=== PATIENT | male | born 1995 | race Caucasian/White ===

== ENCOUNTER 2022-11-22 08:14 | Emergency (ER) | payer BC ==
[2022-11-22] MEDS ORDERED: Sodium Chloride 0.9% 10 ML Syringe FLUSH PRN (08:48)
[2022-11-22] MEDS ORDERED: Sodium Chloride 0.9% 2.5 ML Syringe FLUSH PRN (08:48)
[2022-11-22 09:12] LABS: BASOPHILS PERCENT AUTO 0.2 % (0.0-1.5); EOSINOPHILS ABSOLUTE AUTO 0.3 K/uL (0.0-0.7); EOSINOPHILS PERCENT AUTO 3.4 % (0.0-7.0); HEMATOCRIT 39.5 % (38.0-50.0); HEMOGLOBIN 13.5 g/dL (13.0-17.0); LYMPHOCYTES ABSOLUTE AUTO 1.4 K/uL (0.6-2.4); LYMPHOCYTES PERCENT AUTO 15.9 % (16.0-40.0); MEAN CORPUSCULAR HEMOGLOBIN 29.6 pg (27.0-32.0); MEAN CORPUSCULAR HGB CONC 34.2 g/dL (31.0-37.0); MEAN CORPUSCULAR VOLUME 86.6 fL (80.0-98.0); MONOCYTES ABSOLUTE AUTO 0.8 K/uL (0.0-0.8); MONOCYTES PERCENT AUTO 9.5 % (0.0-15.0); NEUTROPHILS ABSOLUTE AUTO 6.3 K/uL (1.4-5.7); NRBC ABSOLUTE 0 K/uL; PLATELET COUNT,PLT 239 K/uL (150-400); RED BLOOD CELL COUNT 4.56 M/uL (4.50-5.90); WHITE BLOOD CELL COUNT,WBC 8.81 K/uL (4.0-11.0)
[2022-11-22 09:31] LABS: CALCIUM 8.4 mg/dL (8.5-10.1); CREATININE 1.2 mg/dL (0.8-1.3); EST CRCL DRUG DOSING (CG) 101.49 mL/min
[2022-11-22] MEDS ORDERED: Amoxicillin/Clavulanate K 875-125 MG Tab PO ONE (10:11)
== END 2022-11-22 10:27 | disposition home or self-care (01) ==
LOC: MW.ED 08:14
DX: S81.851A Open bite, right lower leg, initial encounter (principal); L03.115 Cellulitis of right lower limb; Z72.0 Tobacco use; Z20.822 Contact with and (suspected) exposure to COVID-19; W55.01XA Bitten by cat, initial encounter
CPT/HCPCS: 36415; 73590; 80048; 85025; 86308; 87635; 99283; A9270; J3490; U0002